=== PATIENT | male | born 1945 | race Caucasian/White ===

== ENCOUNTER 2017-07-23 08:48 | Inpatient (IN) | payer MEDICARE, OTHER ==
[~2017-07-23] VITALS: Ht 190.5 cm; Wt 104.3 kg
[~2017-07-23 08:48] MED LIST: ANESTHESIA TRAY IN PYXIS 1 EA TRAY MC ONE; BACITRACIN 50000 UNITS/VIAL ONE; BUPIVACAINE 0.5 % PF 150 MG/30 ML VIAL ONE; KETOROLAC TROMETHAMINE INJ 30 MG/ML VIAL ONE
[2017-07-23] MEDS ORDERED: CELECOXIB 100 MG CAPSULE ONE (09:14)
[2017-07-23] MEDS ORDERED: oxyCODONE HCL SR 10MG TAB.SR.12H PO ONE (09:14)
[2017-07-23] MEDS ORDERED: ACETAMINOPHEN 325 MG TABLET ONE (09:15)
[2017-07-23] MEDS ORDERED: FENTANYL PF 100MCG/2ML AMPUL ONE (09:31)
[2017-07-23] MEDS ORDERED: MORPHINE SULFATE/PF 10 MG/10ML (1MG/ML) AMPUL ONE (09:32)
[2017-07-23] MEDS ORDERED: MIDAZOLAM HCL 2 MG/2ML VIAL ONE ×2 (09:33→12:20)
[2017-07-23] MEDS ORDERED: TRANEXAMIC ACID 3,000 MG in SODIUM CHLORIDE IRRIG SOLUTION 70 ML IR ONE (10:00)
[2017-07-23] MEDS ORDERED: ROCURONIUM BROMIDE 50 MG/5 ML ONE (10:01)
[2017-07-23] MEDS ORDERED: SUCCINYLCHOLINE CHLORIDE 20 MG/ML VIAL ONE (10:03)
[2017-07-23] MEDS ORDERED: HYDROMORPHONE INJ 2 MG/ML DISP.SYRIN ONE (11:57)
[2017-07-23] MEDS ORDERED: KETOROLAC TROMETHAMINE INJ 30 MG/ML VIAL ONE (12:15)
[2017-07-23] MEDS ORDERED: DIAZEPAM 5 MG/ML 2 ML DISP.SYRIN ONE (12:32)
[2017-07-23] MEDS ORDERED: ONDANSETRON HCL/PF 4 MG/2 ML VIAL IV PRN (13:00)
[2017-07-23] MEDS ORDERED: ACETAMINOPHEN 325 MG TABLET PO PRN (13:00)
[2017-07-23] MEDS ORDERED: HYDROCODONE/APAP 10/325MG 1 EA TABLET PO PRN (13:00)
[2017-07-23] MEDS ORDERED: HYDROMORPHONE 1 MG/1 ML DISP.SYRIN IV PRN (13:00)
[2017-07-23] MEDS ORDERED: HYDROCODONE/APAP 5/325MG 1 EACH TABLET PO PRN ×2 (13:00→16:00)
[2017-07-23] MEDS ORDERED: ZOLPIDEM TARTRATE 5 MG TABLET PO PRN (13:00)
[2017-07-23] MEDS ORDERED: IV D5/0.45 NACL 1,000 ML IV PRN (13:00)
[2017-07-23] MEDS ORDERED: DOCUSATE SODIUM 250 MG CAPSULE PO PRN (13:00)
[2017-07-23] MEDS ORDERED: SENNOSIDES 8.6 MG TABLET PO PRN (13:00)
[2017-07-23] MEDS: oxyCODONE HCL SR 20MG TAB.SR.12H PO SCH ×2 (13:25→21:23)
[2017-07-23 13:30] VITALS: BP 136/84
--- NOTE | 2017-07-23 13:30 | NUR ---
SALES OFFICE MANAGER NOTES 71 YEARS OLD MALE TRANSFERRED FROM OR, S/P TKA RIGHT. PATIENT IS AWAKE, A/O X4, RIGHT KNEE WITH NATALIIA WRAP AND SCD IN PLACE, V/S TAKEN. ON OXYGEN AT 2L VIA NC. IVC RFA G18 PATENT AND INTACT, FLUSHES WELL. LEADS APPLIED FOR TELE MONITOR, INCENTIVE SPIROMETER PROVIDED. PLACE CALL LIGHT WITHIN REACH. NOTIFIED DR. LIU YA. WILL CONT TO MONITOR.
[2017-07-23] MEDS ORDERED: HYDROMORPHONE INJ 0.5 MG/0.5 ML SYRINGE IV PRN ×2 (14:30→16:30)
[2017-07-23] MEDS: HYDROMORPHONE MDV 30 MG in IV NS 0.9% 15 ML, PCA TOTAL VOLUME 1 BAG IV PRN ×3 (15:09)
--- NOTE | 2017-07-23 15:14 | NUR ---
BP 136/84 P70 SATING 95% ON 2L OXYGEN VIA NC, PATIENT IS A/O X4, CONVERSANT. STARTED JOB RECRUITER DILAUDID AT 0.3MG WITH 12 MIN LOCK OUT, PATIENT ABLE TO VERBALIZED USE OF JOB RECRUITER CONTROL PUMP IF HE NEEDS IT. WILL CONT TO MONITOR, PULSE OXIMETER AVAILABLE AT THE BEDSIDE.
[2017-07-23 16:00] VITALS: BP 140/76
[2017-07-23] MEDS ORDERED: Z GUARD REMEDY 2 OZ OINT TP PRN (16:00)
[2017-07-23] MEDS ORDERED: MAGNESIUM HYDROXIDE 30 ML UDC PO PRN (16:00)
[2017-07-23] MEDS ORDERED: MAG HYDROX/AL HYDROX/SIMETH 30 ML UDC PO PRN (16:00)
[2017-07-23] MEDS ORDERED: ONDANSETRON HCL/PF 4 MG/2 ML VIAL IVP PRN (16:00)
[2017-07-23] MEDS: ASPIRIN 325 MG TABLET PO SCH (16:43)
[2017-07-23] MEDS: IV NS 0.9% 1,000 ML IV PRN (16:43)
[2017-07-23] MEDS ORDERED: OXYC40TA57 PO (17:18)
[2017-07-23] MEDS ORDERED: ZOLP10TA2 PO (17:18)
[2017-07-23] MEDS ORDERED: APIX5TAB PO (17:18)
[2017-07-23] MEDS ORDERED: AMLO5TAB2 PO (17:18)
[2017-07-23] MEDS: CEFAZOLIN SODIUM 1 GM in IV SODIUM CHLORIDE 0.9% 50 ML IV SCH (17:38)
--- NOTE | 2017-07-23 18:25 | NUR ---
CLOSING NOTES PATIENT IN BED, A/O X4. SINUS RHYTHM WITH BBB HR 75. PATIENT IS SEEN BY PT FOR EVAL, RIGHT KNEE WITH CPM IN PLACE, PATIENT TOLERATING WELL. FAY CATH INTACT, DRAINING TO GRAVITY, URINE CLEAR AND YELLOW. ON PAIN MANAGEMENT, SCALDER DILAUDID AT 0.3MG WITH 12MIN LOCK OUT. BREATHING NON LABORED, SpO2 MONITOR AT THE BEDSIDE. NO SOB. CALL LIGHT WITHIN REACH. WILL ENDORSE TO NIGHT RN FOR RAFAEL.
--- NOTE | 2017-07-23 19:21 | NUR ---
HR MANAGER OPENING NOTES RECEIVED PATIENT IN BED, A/O X 4. NO SOB, NO ACUTE DISTRESS, NO C/O PAIN TO RIGHT KNEE @ TIS TIME, SMILING, TALKATIVE. RIGHT KNEE WITH CPM IN PLACE, PATIENT TOLERATING WELL. ON TELE MONITORING WITH SR 73 BBB. IV ACEES TO RFA, RUNNING WITH NS @ 75 ML/HR. FAY CATH INTACT, DRAINING TO GRAVITY, URINE CLEAR AND YELLOW. ON PAIN MANAGEMENT, USER INTERFACE ARTIST DILAUDID AT 0.3MG WITH 12MIN LOCK OUT. SpO2 MONITOR AT THE BEDSIDE. BED IN LOW LOCKED POSITION. CALL LIGHT WITHIN REACH. WILL CONTINUE TO MONITOR.
--- NOTE | 2017-07-23 19:56 | NUR ---
PATIENT ADVISED TO HOLD ECHO STUDY UNTIL HE CONFIRMS WITH HIS ATTENDING PHYSICIAN, DR. RITIKA PHILLIPS () REASON FOR THE TEST
[2017-07-23 20:00] VITALS: BP 115/65
[2017-07-23] MEDS ORDERED: oxyCODONE IR immediate release 5 MG PO PRN (22:00)
[2017-07-23] MEDS ORDERED: HYDROMORPHONE 1 MG/1 ML DISP.SYRIN SQ PRN (22:00)
[2017-07-23] MEDS ORDERED: diphenhydrAMINE HCL 25 MG CAPSULE PO PRN (22:00)
[2017-07-24] VITALS: BP 126/65
--- NOTE | 2017-07-24 00:30 | NUR ---
MACHINE MAINTENANCE TECHNICIAN NOTE PT VERBALIZED NOT TO BE WOKEN UP TO CHECK VITALS @ ALL. HE STATED " I JUST TOOK MY AMBIEN & DOESN'T WANT TO BE BOTHERED FOR ANYTHING @ ALL, ALSO WANTED THE NOTE TO BE PUT ON HIS DOOR SAYING, " DO NOT DISTURB ". EXPLAINED TO THE PT THAT WE HAVE TO CHECK HIS VITALS, HE IS ON TELE MONITORING POST OP SX & TO MAKE SURE THAT HE IS OK/STABLE @ NIGHT." PT AGREED TO TO BE ONLY CHECKED QUIETLY BY STAFF WHILE SLEEPING BUT REFUSED TO BE WOKEN UP TO CHECK VITALS @ 0400. EPOXY FABRICATION SUPERVISOR AWARE WELL. V/S WNL @ THIS TIME. WILL DO VISUAL CHECKS WHILE PT IS SLEEPING TO MAKE SURE HE IS OK.
[2017-07-24] MEDS: ZOLPIDEM TARTRATE 5 MG TABLET PO PRN (01:22)
[2017-07-24] MEDS: CEFAZOLIN SODIUM 1 GM in IV SODIUM CHLORIDE 0.9% 50 ML IV SCH (01:22)
--- NOTE | 2017-07-24 04:00 | NUR ---
ACCOUNTS PAYABLE PROFESSIONAL NOTE PT INSTRUCTED STAFF NOT TO WAKE HIM UP FOR VITALS IF HE IS ASLEEP. PT NOTED TO BE SLEEPING @ THIS TIME. V/S NOT DONE @ 0400.
[2017-07-24] MEDS: oxyCODONE HCL SR 20MG TAB.SR.12H PO SCH ×3 (05:00→21:09)
--- NOTE | 2017-07-24 05:33 | NUR ---
INTERNAL WHOLESALER NOTE PATIENT REFUSED TO BE WOKEN UP FOR MEDS BEFORE 7AM, SINCE HE WANTED TO SLEEP COMFORTABLY & REFUSED TO TAE 0500 MED. FREQUENT QUIET VISUAL CHECKS BEING DONE FOR SAFETY & COMFORT.
--- NOTE | 2017-07-24 07:15 | NUR ---
FITNESS STUDIES TEACHER CLOSING NOTES PATIENT SLEPT WELL @ NIGHT, A/O X 4. NO SOB, NO ACUTE DISTRESS, NO C/O PAIN TO RIGHT KNEE @ THIS TIME. ON TELE MONITORING WITH SR 78 BBB. IV ACCESS TO RFA, RUNNING WITH NS @ 75 ML/HR. FAY CATH INTACT, DRAINING TO GRAVITY, URINE CLEAR AND YELLOW. ON PAIN MANAGEMENT, DISPOSAL OPERATOR DILAUDID AT 0.3MG WITH 12MIN LOCK OUT. ON CPAP & SpO2 MONITOR AT THE BEDSIDE. BED IN LOW LOCKED POSITION. CALL LIGHT WITHIN REACH. ENDORSED TO AM RN.
--- NOTE | 2017-07-24 07:30 | NUR ---
FINISH REPAIRER NOTES PATIENT RECEIVED RESTING INSIDE ROOM, SLEEPING BUT AROUSABLE THROUGH VERBAL AND TACTILE STIMULI. BREATHING EVEN AND UNLABORED. CPAP MACHINE WITH PATIENT AT BEDSIDE. DILAUDID BUSINESS ANALYST [employer] PUMP CONNECTED AT 0.3MG WITH 12-MINUTE LOCKOUT. FC IN PLACE AND DRAINING WITH URINE CLEAR YELLOW OUTPUT. WILL CONTINUE TO MONITOR. BED LOCKED AND IN LOW POSITION, BILATERAL UPPER SIDE RAILS UP AND LOCKED. CALL LIGHT WITHIN EASY REACH. WILL CONTINUE TO MONITOR.
[2017-07-24 08:00] VITALS: BP 131/72
[2017-07-24 08:31] LABS: APPEARANCE,URINE CLEAR (CLEAR); BILIRUBIN,URINE NEGATIVE (NEGATIVE); BLOOD, URINE 2+ Ery/uL (NEGATIVE); COLOR,URINE YELLOW (YELLOW); KETONES,URINE NEGATIVE (NEGATIVE); LEUKOCYTE ESTERASE ,URINE NEGATIVE (NEGATIVE); NITRITE, URINE NEGATIVE (NEGATIVE); PH,URINE 5.5 (5.0-8.0); PROTEIN,URINE TRACE mg/dl (NEGATIVE); UGLUCOSE TRACE mg/dL (NEGATIVE); UROBILINOGEN,URINE 0.2 EU/dL (0.2)
[2017-07-24] MEDS: PANTOPRAZOLE 40 MG TABLET.DR PO SCH (08:49)
[2017-07-24] MEDS: ASPIRIN 325 MG TABLET PO SCH ×2 (08:49→17:00)
[2017-07-24 09:31] LABS: BACTERIA,URINE Rare /HPF (None Seen); RBC,URINE 20-30 /HPF (0-2); SQUAMOUS EPITHELIAL CELL,UR Rare /HPF (None Seen); WBC,URINE 0-2 /HPF (0-3)
[2017-07-24 10:44] LABS: ALANINE AMINOTRANSFERASE 25 U/L (12-78); ALBUMIN 3.5 g/dL (3.4-5.0); ALKALINE PHOSPHATASE 67 U/L (46-116); ASPARTATE AMINOTRANSFERASE 26 U/L (15-37); BILIRUBIN,TOTAL 0.4 mg/dL (0.2-1.0); CALCIUM, SERUM 8.8 mg/dL (8.5-10.1); CARBON DIOXIDE 30 mmol/L (21-32); CHLORIDE 108 mmol/L (98-107); CREATININE 1.3 mg/dL (0.6-1.3); GLUCOSE 113 mg/dL (74-106); MAGNESIUM 2.3 mg/dL (1.8-2.4); PHOSPHORUS 2.8 mg/dL (2.5-4.9); POTASSIUM 4.5 mmol/L (3.5-5.1); SODIUM SERUM 144 mmol/L (136-145); TOTAL PROTEIN, SERUM 6.8 g/dL (6.4-8.2); UREA NITROGEN, BLOOD 26 mg/dL (7-18)
[2017-07-24 10:46] LABS: HEMATOCRIT 34 % (39-51); HEMOGLOBIN 11.8 g/dL (13.5-17.5); LYMPHOCYTES # (AUTO) 0.7 /CMM (0.8-4.8); LYMPHOCYTES % (AUTO) 5.6 % (20.0-44.0); MEAN CORPUSCULAR HEMOGLOBIN 31 PG (26.0-33.0); MEAN CORPUSCULAR HGB CONC 34 g/dl (31.0-36.0); MEAN CORPUSCULAR VOLUME 91 fL (80-96); MONOCYTES # (AUTO) 0.9 /CMM (0.1-1.30); MONOCYTES % (AUTO) 7.2 % (2.0-12.0); NEUTROPHILS # (AUTO) 10.7 /CMM (1.8-8.9); NEUTROPHILS % (AUTO) 87.2 % (43.0-81.0); PLATELET COUNT (AUTO) 172 /CMM (150-450); RDW COEFFICIENT OF VARIATION 13.3 (11.5-15.0); RED BLOOD CELL COUNT(AUTO) 3.78 MIL/uL (4.5-6.0); WHITE BLOOD COUNT (AUTO) 12.2 K/uL (4.3-11.0)
[2017-07-24 10:53] LABS: CHOLESTEROL 129 mg/dL (<200); CREATINE KINASE MB 3.1 ng/mL (0-3.6); HDL CHOLESTEROL 45 mg/dL (40-60); LDL 78 mg/dL (0-99); THYROID STIMULATING HORMONE 0.111 uIU/mL (0.358-3.74); TRIGLYCERIDES 57 mg/dL (30-150)
[2017-07-24 10:54] LABS: INR 1.03 (0.87-1.13)
[2017-07-24 11:09] LABS: IRON, SERUM 25 ug/dl (50-175); TOTAL IRON BINDING CAPACITY 225 ug/dl (250-450)
[2017-07-24] MEDS: IV NS 0.9% 1,000 ML IV PRN (12:04)
[2017-07-24 16:00] VITALS: BP 146/76
[2017-07-24] MEDS: DOCUSATE SODIUM 100 MG CAPSULE PO SCH (17:00)
--- NOTE | 2017-07-24 18:00 | NUR ---
MS RN NOTES PATIENT SEEN AND EXAMINED BY LIAT BENAVIDES NP. ORDERS NOTED AND CARRIED OUT
--- NOTE | 2017-07-24 18:29 | NUR ---
MS RN NOTES PATIENT RESTING INSIDE ROOM, AWAKE, ALERT AND ORIENTED. ABLE TO MAKE NEEDS KNOWN AND FOLLOW SIMPLE INSTRUCTIONS. PATIENT BREATHING EVEN AND UNLABORED. DENIES ANY PAIN OR DISCOMFORT. NO SOB OR ACUTE DISTRESS NOTED. PATIENT REMAINS AFEBRILE, SKIN DRY AND WARM TO TOUCH. NO CHANGES IN LOC NOTED AT THIS TIME. IV SITE ON RIGHT FOREARM IN PLACE, INTACT AND PATENT. IV FLUIDS OF NS RUNNING AT 75CC/HR. NO SWELLING OR DISCOLORATION NOTED. BED LOCKED AND IN LOW POSITION, BILATERAL UPPER SIDE RAILS UP AND LOCKED. CALL LIGHT WITHIN EASY REACH. WILL CONTINUE TO MONITOR
[2017-07-24] MEDS: HYDROMORPHONE MDV 30 MG in IV NS 0.9% 15 ML, PCA TOTAL VOLUME 1 BAG IV PRN ×3 (18:37)
--- NOTE | 2017-07-24 19:25 | NUR ---
MS RN NOTES PATIENT RECEIVED RESTING IN BED, A & O X 4. BREATHING EVEN AND UNLABORED. CPAP MACHINE WITH PATIENT AT BEDSIDE. IV ACCESS TO RFA, INTACT PATENT RUNNING WITH NS @ 75 ML/HR. DILAUDID DIRECTOR SERVICE PUMP CONNECTED AT 0.3MG WITH 12-MINUTE LOCKOUT. FC IN PLACE AND DRAINING WITH URINE CLEAR YELLOW OUTPUT. WILL CONTINUE TO MONITOR. BED LOCKED AND IN LOW POSITION, BILATERAL UPPER SIDE RAILS UP AND LOCKED. CALL LIGHT WITHIN EASY REACH. WILL CONTINUE TO MONITOR.
[2017-07-24 20:00] VITALS: BP 141/64
--- NOTE | 2017-07-24 23:05 | NUR ---
REFUSED TO REMOVE FAY APPROACHED PT TO REMOVE FAY AFTER EXPLAINING HIM, FIRST HE AGREED TO REMOVE IT IN A WHILE BUT WHEN RE APPROACHED LATER, HE SAID THAT HE IS IN PAIN @ THAT TIME IF HE WOULD MOVE, WILL CAUSE HIM MORE PAIN. INFORMED HIM THAT IF NOT YET THEN COULD BE REMOVED IN EARLY AM BUT PT SAID IF HE IS ASLEEP, DON'T WAKE HIM UP. PER PT FC NEEDS TO BE REMOVED WHEN HE IS AWAKE IN AM, WHICH WILL BE AROUND 9AM. PT RECEIVED DILAUDID 0.3MG VIA FOOD SERVICE TEAM MEMBER PUMP ORDERED. HELPED HIM TO COMFORTABLE POSITION. MONITORING CLOSELY.
[2017-07-25] MEDS: ZOLPIDEM TARTRATE 5 MG TABLET PO PRN (00:57)
--- NOTE | 2017-07-25 00:57 | NUR ---
PRN AMBIEN GIVEN PATIENT ASKED TO TAKE AMBIEN FOR SLEEPLESSNESS. PRN AMBIEN GIVEN. WILL REASSESS FOR EFFECTIVENESS.
--- NOTE | 2017-07-25 01:00 | NUR ---
MS RN NOTES PATIENT C/O PAIN / TO R KNEE BUT AVOIDS TO USE SHOE HANDLER PUMP @ TIMES. EXPLAINED HIM THE BENEFITS OF SHOE HANDLER PUMP & AGREED TO USE IT WHEN NEEDED. OFFERED HIM PRN OXYCONTIN OR PRN DILAUDID BUT REFUSED. ONLY KEPT ASKING TO REPOSITION HIM OR FIX THE PILLOWS. ASSISTED WITH ALL NEEDS TO MAKE HIM COMFORTABLE MUCH POSSIBLE. PT DID NOT WANT TO USE CPAP @ NIGHT, HE STATED, HE HAS SOB WHEN HE USES CPAP TONIGHT. ASSESSED BY RT & SUGGESTED NOT TO USE THE CPAP TONIGHT. LUNGS CLEAR, NO C/O CHEST PAIN, V/S WNL, 135/77, 84, 20, 97.7, 94% @ RA. PUT ON O2 @ 2LMP. O2 SAT BETWEEN 94-96%. NO SOB. MADE COMFORTABLE IN BED & PT WANTED TO SLEEP SINCE HE TOOK THE AMBIEN EARLIER. WILL CONTINUE TO DO FREQUENT VISUAL CHECKS.
[2017-07-25] MEDS: IV NS 0.9% 1,000 ML IV PRN (01:12)
[2017-07-25] MEDS: oxyCODONE HCL SR 20MG TAB.SR.12H PO SCH ×3 (05:00→21:32)
--- NOTE | 2017-07-25 05:47 | NUR ---
REFUSED 0500 MED PATIENT VERBALIZED NOT TO BE WOKEN UP IF ASLEEP FOR 0500 MED, OXYCONTIN. PATIENT NOTED TO BE AWAKE @ THIS TIME, REPOSITIONING IN BED, OFFERED HIM SCHEDULED PAIN MED SINCE HE C/O PAIN, BUT STILL REFUSED TO TAKE IT. OTHER PAIN MED OPTIONS WERE ALSO OFFERED BUT PT ONLY WANTED THE RN TO FIX HIS PILLOWS ON THE BED SO HE COULD GO BACK TO SLEEP. MONITORING CLOSELY.
--- NOTE | 2017-07-25 07:10 | NUR ---
MS RN CLOSING NOTES PATIENT IS SLEPT WELL & NOT TO BE BOTHERED UNTIL 8AM, HE ALSO ASKED THE STAFF TO PUT A SIGN OUTSIDE HIS ROOM DOOR, WRITTEN BY HIM. A & O X 4. BREATHING EVEN AND UNLABORED. CPAP MACHINE AT BEDSIDE,BUT NOT USED 2 NIGHT, PT DIDN'T FEEL COMFORTABLE USING IT. ON O2 @ 2 LPM SUPPLEMENTAL O2. IV ACCESS TO RFA, INTACT PATENT. DILAUDID ELECTRIC RAZOR ASSEMBLER PUMP CONNECTED AT 0.3MG WITH 12-MINUTE LOCKOUT. PT C/O PAIN TO R KNEE BUT AVOIDS TO USE ELECTRIC RAZOR ASSEMBLER PUMP.FC IN PLACE AND DRAINING WITH CLEAR YELLOW COLOR URINE. BED LOCKED AND IN LOW POSITION, BILATERAL UPPER SIDE RAILS UP AND LOCKED. CALL LIGHT WITHIN EASY REACH. ENDORSED TO AM RN FOR RAFAEL.
--- NOTE | 2017-07-25 07:30 | NUR ---
MS/RN OPENING NOTE RECEIVED PATIENT IN BED SLEEPING. RESPONSIVE TO VERBAL AND TACTILE STIMULI. ALERT AND ORIENTED X4. RESPIRATION REGULAR AND UNLABORED. DENIES SOB, PAIN AT THIS TIME. REGISTER OF DEEDS PUMP FUNCTIONING WELL. RFA G 18 PATENT. NO S/S INFILTRATION NOTED. THE PATIENT IN NO APPARENT DISTRESS. HOB ELEVATED. BED LOW AND LOCKED. SIDE RAILS UP X3. CALL LIGHT WITHIN REACH. WILL CONTINUE TO MONITOR.
[2017-07-25] MEDS: PANTOPRAZOLE 40 MG TABLET.DR PO SCH (08:56)
[2017-07-25] MEDS: ASPIRIN 325 MG TABLET PO SCH ×2 (08:56→17:28)
[2017-07-25] MEDS: DOCUSATE SODIUM 100 MG CAPSULE PO SCH ×2 (08:56→17:28)
[2017-07-25] MEDS: ACETAMINOPHEN 325 MG TABLET PO PRN (08:56)
[2017-07-25 10:25] VITALS: BP 135/75
[2017-07-25 11:54] LABS: BASOPHILS % (AUTO) 0.2 % (0.0-2.0); EOSINOPHILS # (AUTO) 0.3 /CMM (0.0-0.7); EOSINOPHILS % (AUTO) 2.6 % (0.0-6.0); HEMATOCRIT 30 % (39-51); HEMOGLOBIN 10.3 g/dL (13.5-17.5); LYMPHOCYTES # (AUTO) 0.8 /CMM (0.8-4.8); MEAN CORPUSCULAR HEMOGLOBIN 32 PG (26.0-33.0); MEAN CORPUSCULAR HGB CONC 35 g/dl (31.0-36.0); MEAN CORPUSCULAR VOLUME 91 fL (80-96); MONOCYTES % (AUTO) 8.8 % (2.0-12.0); NEUTROPHILS % (AUTO) 81.4 % (43.0-81.0); PLATELET COUNT (AUTO) 130 /CMM (150-450); RDW COEFFICIENT OF VARIATION 13.1 (11.5-15.0); RED BLOOD CELL COUNT(AUTO) 3.29 MIL/uL (4.5-6.0); WHITE BLOOD COUNT (AUTO) 11.1 K/uL (4.3-11.0)
--- NOTE | 2017-07-25 11:56 | NUR ---
MS/RN NOTE RECEIVED TEL CALL FROM DR ENGLISH WITH NEW ORDER TO DISCONTINUE DILAUDID CAR RESTORER. THE ORDER FULLY READ BACK, VERIFIED. NOTED AND CARRIED OUT.
[2017-07-25 12:00] VITALS: BP 134/64
[2017-07-25 12:02] LABS: CARBON DIOXIDE 32 mmol/L (21-32); CHLORIDE 102 mmol/L (98-107); CREATININE 1.3 mg/dL (0.6-1.3); GLUCOSE 106 mg/dL (74-106); SODIUM SERUM 138 mmol/L (136-145); UREA NITROGEN, BLOOD 18 mg/dL (7-18)
--- NOTE | 2017-07-25 19:49 | NUR ---
MS/RN CLOSING NOTE PATIENT ALERT AND ORIENTED X4. DENIES SOB, PAIN AT THIS TIME. BREATHING REGULAR AND UNLABORED. IN NO APPARENT DISTRESS. BED LOW AND LOCKED. SIDE RAIL UP X3. PATIENT REFUSED IV FLUIDS FROM 0700 TO 1700 DESPITE EXPLAINING RISKS AND BENEFITS X3. FAY CATH REMOVED AND UPCOMING SHIFT ENDORSE TO MONITOR FOR VOIDING. CALL LIGHT WITHIN REACH. WILL ENDORSE TO NIGH SHIFT.
[2017-07-25 20:00] VITALS: BP 108/62
--- NOTE | 2017-07-25 20:00 | NUR ---
MS/DIRECTOR MARKETING ANALYTICS; RECEIVED PT IN BED AWAKE, ALERT AND ORIENTED. BREATHING NON LABORED. WITH CPM ON RT KNEE. DRESSING INTACT. IVF ON PROGRESS. PT SAID HE VOIDED ALREADY AND THE CNNA EMPTIED IT ALREADY. PT WITH 02 2L NC ON. PT REFUSED TO USE C/PAP. HE SAID HE COMFORTABLE WITH O2 BY NC. PT INSTRUCTED TO USE INCENTIVE SPIROMETRY FOR EXERCISE AND PT DID IT. BED ON LOWER POSITION AND LOCKED FOR SAFETY. SIDE RAILS X2 ARE UP FOR SAFETY. PT REMINDED TO CALL FOR HELP AND CALL LIGHT WITHIN REACH. PT ALSO SAID HE DOES NOT TO BE AWAKEN FROM MIDNIGHT TO 0800 IN THE MORNING .
[2017-07-26] VITALS: BP 132/69
--- NOTE | 2017-07-26 | NUR ---
MS/DIRECTOR INDUSTRIAL NURSING; AMBIEN 5 MG PO HS PRN GIVEN ORDERED AND PT REQUESTED.
[2017-07-26] MEDS: ZOLPIDEM TARTRATE 5 MG TABLET PO PRN (00:01)
[2017-07-26] MEDS: oxyCODONE HCL SR 20MG TAB.SR.12H PO SCH ×4 (05:00→21:53)
[2017-07-26] MEDS: IV NS 0.9% 1,000 ML IV PRN (06:01)
--- NOTE | 2017-07-26 06:41 | NUR ---
MS/MERCERIZING RANGE FEEDER; PT SLEPT FAIRLY LAST NIGHT . IVF ON PROGRESS. PT HAS BEEN VOIDING HE USED THE URINAL TO YELLOW URINE. WITH CONTINUOUS ICE PACK TO HIS RT KNEE. STILL WITH O2 L NC. WILL CONTINUE TO MONITOR. WILL ENDORSE TO THE DAY SHIFT NURSE.
--- NOTE | 2017-07-26 07:23 | NUR ---
MS/RN OPENING NOTE PATIENT IN BED SLEEPING. RESPONSIVE TO VERBAL AND TACTILE STIMULI. ALERT AND ORIENTED X4. RESPIRATION REGULAR AND UNLABORED. DENIES SOB, PAIN AT THIS TIME. RFA G 18 PATENT. NO S/S INFILTRATION NOTED. BED LOW AND LOCKED. SIDE RAILS UP X3. CALL LIGHT WITHIN REACH. WILL CONTINUE TO MONITOR.
[2017-07-26 08:00] VITALS: BP 118/62
[2017-07-26] MEDS: ASPIRIN 325 MG TABLET PO SCH ×2 (08:34→17:01)
[2017-07-26] MEDS: PANTOPRAZOLE 40 MG TABLET.DR PO SCH (08:34)
[2017-07-26] MEDS: DOCUSATE SODIUM 100 MG CAPSULE PO SCH ×2 (08:34→17:00)
[2017-07-26 16:00] VITALS: BP_SYST 126; BP_SYST 153; BP_DIAS 57; BP_DIAS 76
[2017-07-26] MEDS: ACETAMINOPHEN 325 MG TABLET PO PRN (17:01)
--- NOTE | 2017-07-26 19:00 | NUR ---
MS/RN CLOSING NOTE PATIENT ALERT AND ORIENTED X4. DENIES SOB, PAIN AT THIS TIME. ALL DUE MEDICATIONS GIVEN ORDERED. NO ASE NOTED. THE PATIENT WITH EPISODES OF REFUSING IV FLUIDS. INFUSED TOTAL OF 600 ML DURING THE SHIFT. RFA G 18 PATENT. NO S/S INFILTRATION NOTED. BED LOW AND LOCKED. SIDE RAILS UP X3. CALL LIGHT WITHIN REACH. WILL ENDORSE TO ELECTRONIC TRANSACTION IMPLEMENTER.
[2017-07-26 20:00] VITALS: BP 122/69
--- NOTE | 2017-07-26 20:00 | NUR ---
MS/TEAM LEADER SURGERY; RECEIVED PT IN BED AWAKE, ALERT AND ORIENTED. DENIES PAIN AT THIS TIME. BREATHING NON LABORED. WITH O2 2L NC ON. IVF ON PROGRESS, IV SITE ON RFA. WITH CPM ON HIS RT KNEE. DRESSING WITH NATALIIA WRAP ON HIS RT KNEE INTACT. WITH CONTINUOUS PULSE OX 98% HR 69. BED ON LOWER POSITION AND LOCKED FOR SAFETY. SIDE RAILS UPPER PART OF BED ARE UP FOR SAFETY. CALL LIGHT WITHIN REACH. WILL CONTINUE TO MONITOR.
--- NOTE | 2017-07-27 | NUR ---
MS/CAGE LOADER; PT ASKING FOR SLEEPING PILL. BP ON LA 123/74 , HR 72. SO AMBIEN 5 MG PO HS PRN GIVEN. PT SAID DON'T WAKE HIM UP UNTIL TOMORROW AT 0830.
[2017-07-27] MEDS: ZOLPIDEM TARTRATE 5 MG TABLET PO PRN (00:02)
--- NOTE | 2017-07-27 05:35 | NUR ---
MS/EXCELSIOR MACHINE OPERATOR; PT WOKE UP WANTS TO BE RE ARRANGED IN BED AND WANTS HIS PAIN MED . BP LA 145/74, HR 78. ROUTINE OXYCONTIN 20 MG PO Q8 HOURS GIVEN.
[2017-07-27] MEDS: oxyCODONE HCL SR 20MG TAB.SR.12H PO SCH ×2 (05:46→13:04)
--- NOTE | 2017-07-27 06:44 | NUR ---
MS/SASH INSTALLER; PT SLEPT FAIRLY. BREATHING NON LABORED. PT STILL REFUSED HIS C-PAP LAST NIGHT. ON O2 2L NC . HL INTACT. VOIDING USED URINAL CLEAR YELLOW URINE. WILL ENDORSE TO THE DAY SHIFT NURSE.
--- NOTE | 2017-07-27 08:00 | NUR ---
m/s park guide: initial assessment received pt in bed awake, a/ox4 with dx: s/p right tka. mary anne wrap dressing to right lower ext intact, clean, and dry. unable to assess site due to only md to change dressing. no c/o pain or any discomfort. instructed to call for assistance. will continue to monitor. pt for d'c planning today to snf. pt aware.
[2017-07-27] MEDS: PANTOPRAZOLE 40 MG TABLET.DR PO SCH (08:27)
[2017-07-27] MEDS: ASPIRIN 325 MG TABLET PO SCH ×2 (08:27→16:49)
[2017-07-27] MEDS: DOCUSATE SODIUM 100 MG CAPSULE PO SCH ×2 (08:28→16:49)
[2017-07-27] MEDS ORDERED: ACET325T53 PO (12:06)
[2017-07-27] MEDS ORDERED: OXYC5CAP18 PO (12:06)
--- NOTE | 2017-07-27 12:07 | NUR ---
m/s wool hat forming machine tender: md visit seen and examined by messi (acnp) with order to d'c to snf today. pt aware. gordon (case management) at bedside talking to pt at this time. call light within reach. will monitor.
--- NOTE | 2017-07-27 14:00 | NUR ---
m/s sales engineer: notes [facility] notified, spoke to rcahna (rn) for continuity of care. pt still refuses ambulance when offered despite pt safety education provided. per pt, friend to pick him up before 5pm. facility ([facility]) aware that pt is going via car instead of ambulance per case management.
--- NOTE | 2017-07-27 15:15 | NUR ---
m/s electric lineman: notes kobe (friend) notified and made aware re: d'c to snf, spoke to her over the phone. pt still insist talking to case management.
--- NOTE | 2017-07-27 15:30 | NUR ---
m/s crop farmers: notes pallavi (case management) at bedside talking to pt and will decide if pt wants to go by private car or ambulance within 30 mins.
[2017-07-27 15:45] VITALS: BP 126/75
--- NOTE | 2017-07-27 15:55 | NUR ---
m/s mri supervisor: notes friend here and unable to take him to snf due to car not reclining to his level of reference. pt wants to ambulance to take him, but still hesitating whether to get in the car now or ambulance. pallavi (case management) made aware and making arrangement. eta at 1800, pt aware and friend will wait for the ambulance.
--- NOTE | 2017-07-27 16:02 | NUR ---
m/s hr business partner consultant: notes early dinner ordered.
--- NOTE | 2017-07-27 16:30 | NUR ---
m/s quick service technician: d'c instructions discharged instructions given to pt and verbalized understanding. awaiting for ambulance to pick him up. will continue to monitor. friend remains at bedside.
--- NOTE | 2017-07-27 17:00 | NUR ---
m/s tool liaison: notes early dinner served. friend remains at bedside. will continue to monitor.
--- NOTE | 2017-07-27 17:45 | NUR ---
m/s disc pad grinder: notes h/l removed with tip intact with no swelling, no redness, and no bleeding noted. awaiting for transportation to go snf. friend remains at bedside.
--- NOTE | 2017-07-27 18:15 | NUR ---
m/s patents examiner: notes f/u made to [facility] re: picker packer for 1800, spoke to jeff (dispatch) and informed me that had a priority picker packer in [place] so the next picker packer will be at 1999. pt made aware, but not to happy of waiting around. friend remains at bedside. will continue to monitor. case management made aware. cn made aware.
--- NOTE | 2017-07-27 19:31 | NUR ---
MS RN OPENING NOTES: RECEIVED PT AND IS AWAKE AND A/OX4. PT WATCHING TELEVISION AND IS ON THE CPM MACHINE. PT ON 2LPM VIA NC AND IS TOLERATING WELL. PT AWAITING FOR DISCHARGE. NO IV NOTED IT HAS BEEN REMOVED FOR DISCHARGE. PT TO HEAD TO [facility]. NO SOB NOTED. CALL LIGHT WITHIN PT'S REACH. BED KEPT IN LOW, LOCKED POSITION, AND SIDE RAILS X 2UP. WILL CONTINUE TO MONITOR PT.
--- NOTE | 2017-07-27 19:53 | NUR ---
MS RN NOTES: ROEL AT BEDSIDE.
--- NOTE | 2017-07-27 19:59 | NUR ---
MS RN NOTES: REPORT GIVEN TO EMT.
--- NOTE | 2017-07-27 20:12 | NUR ---
MS RN NOTES: PT LEFT IN STABLE CONDITION. PT LEFT WITH BELONGINGS. PT GOING TO [facility].
== END 2017-07-27 20:10 | DRG 469 ==
LOC: DS 08:48 → MED 13:17 → TELE 14:16 → MED 07-24 09:35
PROVIDERS: ADMIT Specialist; ATTEND Specialist
PROC: 0SRC0J9 Replacement of Right Knee Joint with Synthetic Substitute, Cemented, Open Approach (ICD-10-PCS; principal; 2017-07-23 10:13)
DX: M17.11 Unilateral primary osteoarthritis, right knee (principal); N17.0 Acute kidney failure with tubular necrosis; D68.59 Other primary thrombophilia; I48.91 Unspecified atrial fibrillation; N18.9 Chronic kidney disease, unspecified; Z79.01 Long term (current) use of anticoagulants; E66.9 Obesity, unspecified; G47.30 Sleep apnea, unspecified; Z85.828 Personal history of other malignant neoplasm of skin; Z95.0 Presence of cardiac pacemaker; Z68.28 Body mass index [BMI] 28.0-28.9, adult; G47.00 Insomnia, unspecified; E29.1 Testicular hypofunction; J34.2 Deviated nasal septum; D72.829 Elevated white blood cell count, unspecified; D63.8 Anemia in other chronic diseases classified elsewhere; M19.011 Primary osteoarthritis, right shoulder; M19.012 Primary osteoarthritis, left shoulder
CPT/HCPCS: 36415; 71045-TC; 80048-TC; 80053-TC; 80061-TC; 81000-TC; 82553-TC; 82746; 83540-TC; 83735-TC; 84100-TC; 84443-TC; 85025-TC; 85730-TC; 86850-TC; 86921-TC; 87040-TC; 87081-TC; 87086-TC; 88305-TC; 88311-TC; 93307-TC; 97110-TC; 97116-TC; 97530-TC; 97760-TC; A4216; A4217; A4606; A6402; C1713; J0330; J0690; J1170; J1885; J2250; J2274; J2405; J2704; J2765; J3010; J3360; J3490; J7030; L1830; Z7610